=== PATIENT | male | born 1970 | race African-American/Black ===

== ENCOUNTER 2021-06-11 14:22 | Emergency (ER) | payer SELFPAY ==
[~2021-06-11] VITALS: Ht 162.6 cm; Wt 75.0 kg
[2021-06-11 15:00] LABS: BASO # 0.1 x10^3/uL (0.0-0.2); BASO % 1 % (0-3); EOS # 0.1 x10^3/uL (0.0-0.7); EOS % 1 % (0-3); HEMATOCRIT 37.2 % (39.0-53.0); HEMOGLOBIN 12.6 g/dL (13.0-17.5); LYMPH # 3.6 x10^3/uL (1.0-4.8); LYMPH % 34 % (24-48); MEAN CORPUSCULAR HEMOGLOBIN 29 pg (25-35); MEAN CORPUSCULAR HGB CONC 34 g/dL (31-37); MEAN CORPUSCULAR VOLUME 85 fL (79-100); MONO # 0.7 x10^3/uL (0.0-1.1); MONO % 7 % (0-9); NEUT # 6.2 x10^3/uL (1.8-7.7); NEUT % 58 % (31-73); PLATELET COUNT 322 x10^3/uL (140-400); RED BLOOD COUNT 4.37 x10^6/uL (4.30-5.70); RED CELL DISTRIBUTION WIDTH 13.5 % (11.5-14.5); WHITE BLOOD COUNT 10.7 x10^3/uL (4.0-11.0)
[2021-06-11] MEDS ORDERED: IV NORMAL SALINE 1000ML BAG 1,000 ML IV ONE (15:00)
--- NOTE | 2021-06-11 15:10 | RAD ---
XR SHOULDER_LEFT 2+ VIEWS History: Reason: left shoudler pain / Spl. Instructions: / History: Technique: 2 views left shoulder Comparison: None. Findings: Anterior inferior glenohumeral dislocation. Large Hill-Sachs defect within the posterior lateral nancy ral head. Potential bony Bankart noted. Impression: 1. Left anterior inferior glenohumeral dislocation. 2. Large Hill-Sachs defect and potential bony Bankart defect. Electronically signed by: Danny Church DO (06/11/2021 3:07 PM) [id number]
[2021-06-11] MEDS ORDERED: KETAMINE HCL 500 MG/10 ML VIAL. IV ONE (15:15)
[2021-06-11] MEDS ORDERED: MIDAZOLAM HCL/PF 5 MG/5 ML VIAL. NS ONE (15:15)
[2021-06-11 15:20] LABS: CALCIUM 8.3 mg/dL (8.5-10.1); CREATININE 0.9 mg/dL (0.7-1.3); GFR 90.1; POTASSIUM 3.7 mmol/L (3.5-5.1)
[2021-06-11 15:23] LABS: ALBUMIN 3.6 g/dL (3.4-5.0); ALBUMIN/GLOBULIN RATIO 0.9 (1.0-1.7); TOTAL BILIRUBIN 0.5 mg/dL (0.2-1.0); TOTAL PROTEIN 7.7 g/dL (6.4-8.2)
--- NOTE | 2021-06-11 15:25 | PHYS DOC ---
Past Medical History Additional Past Medical Histor: X2 LEFT DISLOCATED SHOULDERS Past Surgical History: Other Additional Past Surgical Histo: LEFT ELBOW General Adult EDM: Chief Complaint: SHOULDER INJURY HPI: HPI: 50-year-old male past medical history of bilateral shoulder dislocations 2 months ago, presents the ED with complaints of severe left shoulder pain after patient was throwing pallets, states he heard a pop. Has not seen orthopedic surgeon regarding this joint. Does admit to drinking alcohol prior to ED arrival. Reports he did not hit his head or lose consciousness. Review of Systems: Review of Systems: Constitutional: Denies fever or chills. [] Eyes: Denies change in visual acuity. [] HENT: Denies nasal congestion or sore throat. [] Respiratory: Denies cough or shortness of breath. [] Cardiovascular: Denies chest pain or edema. [] GI: Denies nausea or vomiting Musculoskeletal: Denies back pain or joint warmth Integument: Denies rash or discoloration Neurologic: Denies headache, focal weakness or sensory changes. [] Endocrine: Denies polyuria or polydipsia. [] Lymphatic: Denies swollen glands. [] Psychiatric: Denies depression or anxiety. [] Heart Score: C/O Chest Pain: No Risk Factors: Risk Factors: DM, Current or recent (<one month) smoker, HTN, HLP, family history of CAD, obesity. Risk Scores: Score 0 - 3: 2.5% MACE over next 6 weeks - Discharge Home Score 4 - 6: 20.3% MACE over next 6 weeks - Admit for Clinical Observation Score 7 - 10: 72.7% MACE over next 6 weeks - Early Invasive Strategies Current Medications: Current Medications Medications (Trade) Dose Ordered Sig/Linh Start Time Stop Time Status Last Admin Dose Admin Ketamine HCl (Ketamine) 150 mg 1X ONCE 06/11/21 15:15 06/11/21 15:16 DC Midazolam HCl (Versed) 2 mg 1X ONCE 06/11/21 15:15 06/11/21 15:16 DC Sodium Chloride 1,000 ml @ 1,000 mls/hr 1X ONCE 06/11/21 15:00 06/11/21 15:59 06/11/21 15:02 1,000 MLS/HR Allergies: Allergies: Allergies Coded Allergies Type Severity Reaction Last Updated Verified No Known Drug Allergies 06/11/21 No Physical Exam: PE: Constitutional: Ataxic movements, no active distress, alcohol of breath HENT: Normocephalic, atraumatic, Eyes: EOMI, conjunctiva normal, no discharge. Neck: Normal range of motion, supple, no midline neck pain Cardiovascular: S1/2 present, regular rhythm Lungs & Thorax: Speaking in full sentences, bilateral equal chest rise, no tachypnea or increased work of breathing Skin: Warm, dry, no erythema, no rash. [] Back: No midline spinal step-offs or tenderness, no CVA tenderness. [] Extremities: Tenderness to anterior shoulder joint with rounded anterior shoulder, normal axillary nerve sensation intact, equal radial pulses, no pain at the neck/elbow/wrist Neurologic: Alert and oriented X 3, normal sensory function, no focal deficits noted. [] Psychologic: Affect normal, judgement normal, mood normal. [] Current Patient Data: Labs: Laboratory Tests Test 06/11/21 14:46 White Blood Count 10.7 x10^3/uL (4.0-11.0) Red Blood Count 4.37 x10^6/uL (4.30-5.70) Hemoglobin 12.6 g/dL (13.0-17.5) L Hematocrit 37.2 % (39.0-53.0) L Mean Corpuscular Volume 85 fL (79-100) Mean Corpuscular Hemoglobin 29 pg (25-35) Mean Corpuscular Hemoglobin Concent 34 g/dL (31-37) Red Cell Distribution Width 13.5 % (11.5-14.5) Platelet Count 322 x10^3/uL (140-400) Neutrophils (%) (Auto) 58 % (31-73) Lymphocytes (%) (Auto) 34 % (24-48) Monocytes (%) (Auto) 7 % (0-9) Eosinophils (%) (Auto) 1 % (0-3) Basophils (%) (Auto) 1 % (0-3) Neutrophils # (Auto) 6.2 x10^3/uL (1.8-7.7) Lymphocytes # (Auto) 3.6 x10^3/uL (1.0-4.8) Monocytes # (Auto) 0.7 x10^3/uL (0.0-1.1) Eosinophils # (Auto) 0.1 x10^3/uL (0.0-0.7) Basophils # (Auto) 0.1 x10^3/uL (0.0-0.2) Sodium Level 137 mmol/L (136-145) Potassium Level 3.7 mmol/L (3.5-5.1) Chloride Level 102 mmol/L (98-107) Carbon Dioxide Level 24 mmol/L (21-32) Anion Gap 11 (6-14) Blood Urea Nitrogen 11 mg/dL (8-26) Creatinine 0.9 mg/dL (0.7-1.3) Estimated GFR (Cockcroft-Gault) 90.1 BUN/Creatinine Ratio 12 (6-20) Glucose Level 119 mg/dL (70-99) H Calcium Level 8.3 mg/dL (8.5-10.1) L Total Bilirubin Pending Aspartate Amino Transferase (AST) Pending Alanine Aminotransferase (ALT) Pending Alkaline Phosphatase Pending Total Protein Pending Albumin Pending Albumin/Globulin Ratio Pending Ethyl Alcohol Level 230 mg/dL (0-10) H Laboratory Tests 06/11/21 14:46 Laboratory Tests 06/11/21 14:46 Vital Signs: Vital Signs Date Time Temp Pulse Resp B/P (MAP) Pulse Ox O2 Delivery O2 Flow Rate FiO2 06/11/21 14:43 98.2 94 22 139/84 (102) 95 Room Air 98.2 EKG: EKG: [] Radiology/Procedures: Radiology/Procedures: IMAGING REPORT Signed PATIENT: DENISE YUEN ACCOUNT: [id number] : 1970 LOCATION: ER AGE: 50 SEX: M EXAM STATUS: PRE ER ORD. PHYSICIAN: KELTON FUNEZ DO REASON: left shoudler pain PROCEDURE: SHOULDER 2+V LEFT XR SHOULDER_LEFT 2+ VIEWS History: Reason: left shoudler pain / Spl. Instructions: / History: Technique: 2 views left shoulder Comparison: None. Findings: Anterior inferior glenohumeral dislocation. Large Hill-Sachs defect within the posterior lateral humeral head. Potential bony Bankart noted. Impression: 1. Left anterior inferior glenohumeral dislocation. 2. Large Hill-Sachs defect and potential bony Bankart defect. Electronically signed by: Danny Church DO (06/11/2021 3:07 PM) [id number] DICTATED and SIGNED BY: DANNY CHURCH DO DATE: 06/11/21 [id number] IMAGING REPORT Signed PATIENT: DENISE YUEN ACCOUNT: [id number] : 1970 LOCATION: ER AGE: 50 SEX: M EXAM STATUS: REG ER ORD. PHYSICIAN: KELTON FUNEZ DO REASON: s/p reduction PROCEDURE: SHOULDER 2+V LEFT Site ID: [id number] EXAMINATION: XR SHOULDER_LEFT 2+ VIEWS. HISTORY: 50 years Male Reason: s/p reduction COMPARISON: 1 hour earlier. FINDINGS: Successful reduction of shoulder dislocation seen. Deformity along the lateral aspect of the humerus head is again suggestive of Hill-Sachs deformity. No obvious glenoid fracture is seen on this exam. The acromioclavicular joint appear unremarkable.. IMPRESSION: Successful reduction of left shoulder dislocation. Suggestion of Hill-Sachs deformity at the humeral head. Electronically signed by: Dinehs Peraza MD (06/11/2021 4:10 PM) [id number] DICTATED and SIGNED BY: DINESH PERAZA MD DATE: 06/11/21 [id number] Indication: Joint dislocation Consent: Consent was obtained. Procedure: The pre-reduction exam showed distal perfusion and neurologic function to be normal.. The patient was placed in the appropriate position. Anesthesia/pain control was declined by patient stating "I don't want to be put under." Reduction of the left anterior inferior shoulder dislocation was performed by traction/countertraction. Post reduction films were obtained and revealed satisfactory reduction. A post-reduction exam revealed distal perfusion and neurologic function to be normal. The affected area was immobilized with left shoulder immobilizer. The patient tolerated the procedure well. Complications: Hill-Sachs deformity that was seen prior to reduction, otherwise none. Course & Med Decision Making: Course & Med Decision Making Pertinent Labs and Imaging studies reviewed. (See chart for details) Concern for left anterior inferior shoulder dislocation, easily reduced without any analgesia. Upon obtaining consent for sedation, patient declined stating "I am tough." Neurovascular exam intact before and after procedure. Shoulder immobilized. Hill-Sachs deformity seen prior to reduction. Will discharge home with strict ED return precautions were given for repeat injury, severe pain or neurologic deficits. Encouraged urgent outpatient follow-up with PMD and orthopedic surgery for definitive management of left shoulder ligamentous laxity. Life-threatening processes were considered but are low suspicion at this time, given history, physical exam and ED workup. Pt was educated on all prescription medications and adverse effects. All patient's questions were answered and pt was stable at time of discharge. Life/limb-threatening differential includes but is not limited to, avascular necrosis, septic arthritis, malignancy, compartment syndrome, fracture/ligamentous injury/overuse, decompression sickness, seronegative spondyloarthropathies, trauma including dislocation/fracture, Lyme disease, lupus, arthritis differentials, gout/pseudogout or decompression sickness. I have spoken with the patient and/or caregivers. I explained the patient's condition, diagnoses and treatment plan based on the information available to me at this time. I have answered the patient and/or caregiver's questions and addressed any concerns. The patient and/or caregivers have a good understanding of patient's diagnosis, condition and treatment plan as can be expected at this point. Vital signs have been stable. Patient's condition is stable and appropriate for discharge from the emergency department. Patient will pursue further outpatient evaluation with primary care physician or other designated or consulting physician as outlined in the discharge instructions. The patient and/or caregivers are agreeable to this plan of care and follow-up instructions have been explained in detail. The patient and/or caregivers have received these instructions in written form and have expressed an understanding of the discharge instructions. The patient and/or caregivers are aware that any significant change of condition or worsening of symptoms should prompt immediate return to this or the closest emergency department or call to 911. Rudi Disclaimer: Rudi Disclaimer: This electronic medical record was generated, in whole or in part, using a voice recognition dictation system. Departure Departure Impression: Primary Impression: Anterior shoulder dislocation Additional Impressions: Hill Sachs deformity, left Alcohol intoxication Disposition: 01 HOME / SELF CARE / HOMELESS Condition: STABLE Referrals: NO PCP (PCP) Follow-up with your primary care physician in 24 to 48 hours OR FOLLOW UP WITH FAMILY MEDICINE: [address], [address] [place] [address] Patient Instructions: Alcohol Intoxication, Shoulder Dislocation Additional Instructions: FOLLOW UP WITH ORTHOPEDICS: FOR DEFINITIVE MANAGEMENT of left shoulder instability Orthopaedic Surgery [address] [place], [address] [place] [address] EMERGENCY DEPARTMENT GENERAL DISCHARGE INSTRUCTIONS Thank you for coming to [facility] Emergency Department (ED) today and trusting us with you care. We trust that you had a positive experience in our Emergency Department. If you wish to speak to the department management, you may call the Director at [phone]. YOUR FOLLOW UP INSTRUCTIONS ARE FOLLOWS: 1. Do you have a private Doctor? If you do not have a private doctor, please ask for a resource list of physicians or clinics that may be able to assist you with follow up care. 2. The Emergency Physicain has interpreted your x-rays. The X-Ray specialist will also review them. If there is a change in the findings, you will be notified in 48 hours when at all possible. 3. A lab test or culture has been done, your results will be reviewed and you will be notified if you need a change in treatment. ADDITIONAL INSTRUCTIONS AND INFORMATION: 1. Your care today has been supervised by a physician who is specially trained in emergency care. Many problems require more than one evaluation for a complete diagnosis and treatment. We recommend that you schedule your follow up appointment as recommended to ensure complete treatment of you illness or injury. If you are unable to obtain follow up care and continue to have a problem, or if your condition worsens, we recommend that you return to the ED. 2. We are not able to safely determine your condition over the phone nor are we able to give sound medical advice over the phone. For these safety reasons, if you call for medical advice we will ask you to come to the ED for further evaluation. 3. If you have any questions regarding these discharge instructions please call the ED at [phone]. SAFETY INFORMATION: In the interest of safety, wellness, and injury prevention; we encourage you to wear your sealbelt, if you smoke; quite smoking, and we encourage family to use a protective helmet for bicycling and other sporting events that present an increased risk for head injury. IF YOUR SYMPTOMS WORSEN OR NEW SYMPTOMS DEVELOP, OR YOU HAVE CONCERNS ABOUT YOUR CONDITION; OR IF YOUR CONDITION WORSENS WHILE YOU ARE WAITING FOR YOUR FOLLOW UP APPOINTMENT; EITHER CONTACT YOUR PRIMARY CARE DOCTOR, THE PHYSICIAN WHOSE NAME AND NUMBER YOU WERE GIVEN, OR RETURN TO THE ED IMMEDIATELY. KELTON BEST DO Jun 11, 2021 15:25
--- NOTE | 2021-06-11 16:12 | RAD ---
Site ID: [id number] EXAMINATION: XR SHOULDER_LEFT 2+ VIEWS. HISTORY: 50 years Male Reason: s/p reduction COMPARISON: 1 hour earlier. FINDINGS: Successful reduction of shoulder dislocation seen. Deformity along the lateral aspect of the humerus head is again suggestive of Hill-Sachs deformity. No obvious glenoid fracture is seen on this exam. T he acromioclavicular joint appear unremarkable.. IMPRESSION: Successful reduction of left shoulder dislocation. Suggestion of Hill-Sachs deformity at the humeral head. Electronically signed by: Minh Peraza MD (06/11/2021 4:10 PM) [id number]
[2021-06-11 16:19] VITALS: BP 130/79
== END 2021-06-11 16:43 | disposition home or self-care (01) ==
LOC: ER 14:22
DX: S43.085A Other dislocation of left shoulder joint, initial encounter (principal); X58.XXXA Exposure to other specified factors, initial encounter; Y93.89 Activity, other specified; Y92.89 Other specified places as the place of occurrence of the external cause; Y99.8 Other external cause status
CPT/HCPCS: 23650; 36415; 73030; 80053; 85025; 96360; 99285; G0480; J7030